=== PATIENT | male | born 1975 | race African-American/Black ===

== ENCOUNTER 2017-05-17 08:11 | Emergency (ER) | payer OTHER ==
[~2017-05-17] VITALS: Ht 182.9 cm; Wt 113.4 kg
--- NOTE | ~2017-05-17 | CT2 ---
[facility] A Service of [facility] RADIOLOGY TEXT RESULTS PATIENT: WALLY AN LOCATION: [facility] : 75 UNIT #: [id number] AGE: [address]: Krystin Bah APRN SEX: M ORDER DR: [id number] [facility] [address] [place], [place] [address] [id number] E MR#: [id number] Acc #: [id number] NAME: WALLY AN. : 1975 SEX: M STUDY DATE/TIME: 05/17/2017 10:05 UNIT: [facility] ROOM: STUDY DESCRIPTION: CT Abd and Pelv W Cont Attending Physician: Krystin Bah A.P.R.N. Ordering Physician: Ed Enrrique Cortez M.D. Primary Care Physician: Anurag Cano M.D. MEDICAL IMAGING REPORT This report is preliminary unless electronic signature is present EXAM CT abdomen and pelvis with contrast 05/17/2017, 10:05 hours. HISTORY 41-year-old man complaining of right upper quadrant abdominal pain since 05/16/2017. COMPARISON None. TECHNIQUE Dynamic helical CT images were obtained from the lung bases through the pubic symphysis with intravenous contrast. Sagittal and coronal reconstructions were performed. Contrast was Isovue-370 100 mL IV. Total exam DLP 986 mGy-cm. This CT exam was performed with one or more of the following radiation dose reduction techniques: automatic exposure control, adjustment of mA and/or kV according to patient size, and iterative reconstruction. FINDINGS Images through the lung bases demonstrate clear lungs. There is no pleural effusion. The distal esophagus is normal. Images through the abdomen demonstrate a normal appearance to the liver, spleen, pancreas and bile ducts. The gallbladder is distended. No gallstones are seen. No definite gallbladder wall thickening is seen. The adrenal glands are normal. The kidneys enhance normally. There is no renal mass or stone. No pelvocaliectasis, ureterectasis or ureteral calculus. The bladder is normal. The abdominal aorta is normal in caliber. There is no adenopathy or STS. 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 The stomach contains a moderate amount of fluid. There is no gastric wall thickening. The small bowel is unopacified and nondistended. There is no small bowel wall thickening. The terminal ileum, cecum and appendix are normal. There is no colonic distension or evidence of constipation. There are scattered diverticula of the distal descending colon and sigmoid colon without CT evidence of diverticulitis. CT pelvis is negative. IMPRESSION 1. The gallbladder is distended. There is no definite gallstone seen. No pericholecystic fluid. No definite wall thickening is seen. Given this appearance and the patient's symptoms in this area, I would consider further evaluation with ultrasound of the gallbladder to assess for wall thickening. There is no bile duct dilatation and the pancreas is normal. 2. The kidneys ureters and bladder are normal. 3. Normal appendix. 4. Diverticulosis of the distal descending colon and sigmoid colon without evidence of diverticulitis. Dictated by... Mellisa Kim M.D. THIS IS AN ELECTRONICALLY VERIFIED REPORT Mellisa Kim M.D. at 05/17/2017 1:47 PM Jeannie TD: 05/17/2017 13:38 JOB #: [id number] MEDICAL IMAGING REPORT Page 1 of 1 COPY
--- NOTE | ~2017-05-17 | US67 ---
[facility] A Service of [facility] RADIOLOGY TEXT RESULTS PATIENT: WALLY AN LOCATION: [facility] : 75 UNIT #: [id number] AGE: [address]: Krystin Bah APRN SEX: M ORDER DR: [id number] [facility] [address] [place], [place] [address] [id number] E MR#: [id number] Acc #: [id number] NAME: WALLY AN. : 1975 SEX: M STUDY DATE/TIME: 05/17/2017 11:38 UNIT: [facility] ROOM: STUDY DESCRIPTION: US Gallbladder Attending Physician: Krystin Bah A.P.R.N. Ordering Physician: Ed Doctor [id number] [facility] Primary Care Physician: Anurag Cano M.D. MEDICAL IMAGING REPORT This report is preliminary unless electronic signature is present EXAM Gallbladder ultrasound 05/17/2017 HISTORY Pain. Right upper quadrant pain for 2 days. FINDINGS Real-time ultrasonography of the right upper quadrant performed. Comparison to CT examination from earlier on the same date. The visualized pancreas is unremarkable. The liver measures 17.8 cm in craniocaudal extent. Appearance suggests mild fatty infiltration. No acute focal hepatic parenchymal abnormality is seen. The portal vein is patent with normal direction of flow. Right kidney measures 11.9 cm in greatest length. No hydronephrosis or nephrolithiasis. No cystic or solid mass lesion and no perinephric fluid collection. The gallbladder does not appear pathologically dilated. There are it is at least 1 shadowing gallstone seen in the gallbladder neck. Gallbladder wall measures normal at 1.7 mm in diameter. There is no pericholecystic fluid. The brain wave technician indicates the patient was tender to palpation over the gallbladder. The common bile duct is prominent for a patient of this age at about 6 mm in diameter. No obstructing process seen on this examination or prior CT. The previously described gallstone on ultrasound is not clearly identified on CT. Please correlate with laboratory data and clinical presentation. IMPRESSION 1. The gallbladder is not pathologically dilated and there is no gallbladder wall thickening or pericholecystic fluid. There is a shadowing gallstone seen in the gallbladder neck region and the brain wave technician indicates patient is tender to palpation over the region of gallbladder. There is no compelling ultrasound evidence of acute cholecystitis. Please correlate with formal clinical examination and laboratory data. Weight should be given clinical assessment. There [facility] A Service of [facility] RADIOLOGY TEXT RESULTS PATIENT: WALLY AN [id number] 75 UNIT #: [id number] AGE: [address]: Krystin Bah ACCOUNTS RECEIVABLE REPRESENTATIVE SEX: M ORDER DR: is no intrahepatic ductal dilatation but the extrahepatic duct is prominent at about 6 mm in diameter with no obstructing process clearly seen. 2. Probable diffuse fatty infiltration of liver. Liver upper limits of normal in size. No suspicious focal abnormality. 3. Right kidney and pancreas normal. Dictated by... Bashir Gomez M.D. THIS IS AN ELECTRONICALLY VERIFIED REPORT Bashir Gomez M.D. at 05/19/2017 10:01 PM ARANZA/ryan TD: 05/17/2017 15:35 JOB #: [id number] MEDICAL IMAGING REPORT Page 1 of 1 COPY
[~2017-05-17 08:11] MED LIST: BACTRIM 400-801 TA1 PO; BACTRIM DS TABL1 TA1 PO; BACTROBAN15 GM TOP; BENZONATATE PO; PREDNISONE10 MG/DOSE PO; VICODIN 5/1 TAB 5/50 PO
[2017-05-17 09:23] LABS: BASOPHIL% 0.5 % (0-2.5); EOSINOPHIL# 0.2 X10e3 (0-0.7); EOSINOPHIL% 1.7 % (0.0-7.0); HEMATOCRIT 43.8 % (38.0-50.0); HEMOGLOBIN 15.2 gm/dL (13.0-16.0); LYMPHOCYTE# 1.4 X10e3 (1.0-3.5); LYMPHOCYTE% 14.4 % (17.0-45.0); MEAN CELL VOLUME 91.6 FL (83-96); MEAN CORPUSCULAR HEMOGLOBIN 31.9 PG (28-34); MEAN CORPUSCULAR HGB CONC 34.8 g/dL (30-36); MEAN PLATELET VOLUME 8.4 FL (6.5-11.5); MONOCYTE# 0.7 X10e3 (0-1.0); MONOCYTE% 7.5 % (3.0-12.0); NEUTROPHIL# 7.2 X10e3 (1.5-7.1); NEUTROPHIL% 75.9 % (40-75); PLATELET COUNT 276 X10e3 (140-420); RED BLOOD COUNT 4.78 X10e (3.90-5.60); RED CELL DISTRIBUTION WIDTH 13.9 % (11.0-15.5); WHITE BLOOD COUNT 9.5 X10e3 (4.0-10.5)
[2017-05-17 09:28] LABS: DIFF IND NO
[2017-05-17 09:32] LABS: URINE SOURCE CLEAN CATCH
[2017-05-17 09:42] LABS: URINE APPEARANCE CLEAR; URINE BILIRUBIN NEG (NEG); URINE BLOOD NEG (NEG); URINE COLOR YELLOW; URINE GLUCOSE 100 MG/DL (NEG); URINE KETONE TRACE (NEG); URINE LEUKOCYTE ESTERASE NEG (NEG); URINE NITRATE NEG (NEG); URINE PH 7.5 (5-8); URINE PROTEIN 1+ (NEG)
[2017-05-17 09:45] LABS: URBCS1 AUWI 0-2 /[HPF] (0-2); URINE BACTERIA AUWI NEG (NEGATIVE); URINE SQUAMOUS EPITHELIAL CELL NONE SEEN /[HPF]; UWBCS1 AUWI 0-2 (0-5)
[2017-05-17 09:49] LABS: BILIRUBIN, DIRECT 0.2 mg/dL (0.0-0.2); BILIRUBIN,INDIRECT 0.8 mg/dL (0.0-0.9); BUN/CREATININE RATIO 8.57; CALCIUM SERUM 9.2 mg/dL (8.4-10.2); CREATININE SERUM 1.4 mg/dL (0.6-1.4); GLOM FILT RATE Estimated 71.8 mL/min (>60); POTASSIUM 3.9 mmol/L (3.5-5.1); PROTEIN TOTAL SERUM 7.2 g/dL (6.0-8.3)
[2017-05-17 09:50] LABS: CULTURE INDICATED? NO
== END 2017-05-17 14:25 | disposition home or self-care (01) ==
LOC: CED 08:11
PROVIDERS: Nurse Practitioner
DX: R10.11 Right upper quadrant pain (principal); I10 Essential (primary) hypertension; F17.210 Nicotine dependence, cigarettes, uncomplicated; Z91.14 Patient's other noncompliance with medication regimen
CPT/HCPCS: 36415; 74177; 76705; 80048; 80076; 81003; 82150; 83690; 85025; 96374; 96375; 99284; J2270; J2405; Q9967